=== PATIENT | male | born 1975 | race Two or more races ===

== ENCOUNTER 2018-11-23 09:54 | Emergency (ER) | payer OTHER ==
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
--- NOTE | 2018-11-23 12:26 | PSYCHOLOGICAL NOTE ---
Psych Note - Psych Note Date seen by psych provider: 11/23/18 Psych Note: Presenting Problem: Depression and SI. He denied current SI, said it comes and goes, has not taken action, sleeps all week, has no motivation, no interest in things (fishing, yoga, exercise), unable to focus and doesn't want to see or talk to people. He was tearful. He reported "I want to be happy, I don't want to be like this, just sometimes it pops in my head, I don't know why, no reason, try to do good but can't do anything right, I want to feel okay, I don't want to feel like this." He denied previous MH treatment to include medications and inpatient hospitalization. He denied family history of MH. He mentioned he has felt this way since his triple bypass surgery in 2009. He stated if the medication made him feel better he'd be interested but is scared of medication. He said he was interested in linkage to MH services. Diagnosis: Unspecified Depressive Disorder Medication recommendations made by the psychiatric medical provider, Dr. Louis MD., includes: Add Celexa 20MG daily for depression/ruminating thoughts Impression/Plan: Patient is cleared from acute psychiatric services. He denied current SI/HI, denied previous attempts, admitted to previous thoughts that come and go but never action, and no observed psychosis. He stated he doesn't want to feel this way and want to be happy. Was open to medication and outpatient linkage. Provided medication recommendation. Provided patient with outpatient MH resource sheet which highlighted [facility] for crisis/talk therapy/linkage to other supports/services, as well as [facility] for outpatient follow up. Patient encouraged to call today or first thing in the morning. Consulted with Dr. Batres regarding the management and care of patient. ED Physician in agreement with recommendations.
[2018-11-23 12:59] LABS: ABSOLUTE BASOPHILS # (AUTO) 0.1 10^3/uL (0.0-0.2); ABSOLUTE EOSINOPHILS # (AUTO) 0.1 10^3/uL (0.0-0.6); ABSOLUTE LYMPHOCYTES (AUTO) 2.9 10^3/uL (0.5-4.7); ABSOLUTE MONOCYTES (AUTO) 0.6 10^3/uL (0.1-1.4); ABSOLUTE NEUT (AUTO) 6.2 10^3/uL (1.7-8.2); BASOPHILS % (AUTO) 0.6 % (0-2); EOSINOPHILS % (AUTO) 1.3 % (0-6); HEMATOCRIT 51.1 % (37.9-51.0); HEMOGLOBIN 17.1 g/dL (13.5-17.0); LYMPHOCYTES % (AUTO) 29.2 % (13-45); MEAN CORPUSCULAR HEMOGLOBIN 29.2 pg (27.0-33.4); MEAN CORPUSCULAR HGB CONC 33.4 g/dL (32.0-36.0); MEAN CORPUSCULAR VOLUME 87 fl (80-97); MONOCYTES % (AUTO) 5.7 % (3-13); PLATELET COUNT 282 10^3/uL (150-450); RED BLOOD COUNT 5.84 10^6/uL (4.35-5.55); SEGMENTED NEUTROPHILS % (AUTO) 63.2 % (42-78); TOTAL CELLS COUNTED % (AUTO) 100 %; WHITE BLOOD COUNT 9.8 10^3/uL (4.0-10.5)
[2018-11-23 13:14] LABS: ALANINE AMINOTRANSFERASE 20 U/L (21-72); ALBUMIN 4.7 g/dL (3.5-5.0); ALKALINE PHOSPHATASE 74 U/L (38-126); ANION GAP 11 (5-19); ASPARTATE AMINO TRANSFERASE 31 U/L (17-59); BILIRUBIN,DIRECT 0.3 mg/dL (0.0-0.4); BILIRUBIN,TOTAL 0.5 mg/dL (0.2-1.3); BLOOD UREA NITROGEN 14 mg/dL (7-20); CARBON DIOXIDE 26 mmol/L (22-30); CHLORIDE 103 mmol/L (98-107); GLUCOSE 96 mg/dL (75-110); POTASSIUM 4.4 mmol/L (3.6-5.0); SODIUM 139.5 mmol/L (137-145); TOTAL PROTEIN 7.8 g/dL (6.3-8.2)
[2018-11-23 13:15] LABS: ACETAMINOPHEN < 10 ug/mL (10-30); ALCOHOL < 10 mg/dL (NONE DETECTED); SALICYLATE < 1.0 mg/dL (2.0-20.0)
[2018-11-23 13:29] LABS: APPEARANCE,URINE CLEAR; BILIRUBIN,URINE NEGATIVE (NEGATIVE); COLOR,URINE YELLOW; GLUCOSE, URINE NEGATIVE (NEGATIVE); KETONES,URINE NEGATIVE (NEGATIVE); LEUKOCYTE ESTERASE,URINE NEGATIVE (NEGATIVE); NITRITE,URINE NEGATIVE (NEGATIVE); PROTEIN,URINE NEGATIVE (NEGATIVE); URINE SPECIFIC GRAVITY 1.018; UROBILINOGEN,URINE NEGATIVE mg/dL (<2.0)
[2018-11-23 13:46] LABS: URINE AMPHETAMINES SCREEN NEGATIVE; URINE BARBITURATES SCREEN UNCONFIRMED POSITIVE; URINE BENZODIAZEPINES SCREEN NEGATIVE; URINE COCAINE SCREEN NEGATIVE; URINE MARIJUANA (THC) SCREEN UNCONFIRMED POSITIVE; URINE METHADONE SCREEN NEGATIVE; URINE PHENCYCLIDINE SCREEN NEGATIVE
[2018-11-23] MEDS ORDERED: CITALOPRAM HYDROBROMIDE 20 MG TABLET PO ONE (14:21)
[2018-11-23] MEDS ORDERED: LISINOPRIL 10 MG TABLET PO ONE (14:21)
[2018-11-23 14:41] VITALS: BP 155/113
--- NOTE | 2018-11-23 15:50 | EKG REPORT ---
SEVERITY:- ABNORMAL ECG - SINUS RHYTHM NONSPECIFIC INTRAVENTRICULAR CONDUCTION DELAY PROBABLE LEFT VENTRICULAR HYPERTROPHY INFERIOR INFARCT, OLD : Confirmed by: Jimbo Gupta MD 23-Nov-2018 15:50:04
== END 2018-11-23 14:41 | disposition home or self-care (01) ==
LOC: ER 09:54
DX: F32.9 Major depressive disorder, single episode, unspecified (principal); R45.851 Suicidal ideations; M54.5 Low back pain; M54.2 Cervicalgia; V43.52XA Car driver injured in collision with other type car in traffic accident, initial encounter; I10 Essential (primary) hypertension; I25.10 Atherosclerotic heart disease of native coronary artery without angina pectoris; F17.210 Nicotine dependence, cigarettes, uncomplicated; Z95.1 Presence of aortocoronary bypass graft
CPT/HCPCS: 36415; 80053; 80307; 81001; 85025; 93005; 93010; 99284

== ENCOUNTER 2019-05-08 11:01 | Emergency (ER) | payer OTHER ==
[2019-05-08] MEDS ORDERED: ACETAMINOPHEN 325 MG TABLET PO ONE (11:27)
[2019-05-08] MEDS ORDERED: MECLIZINE HCL 25 MG TABLET PO ONE (11:27)
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
[2019-05-08 12:11] LABS: ABSOLUTE BASOPHILS # (AUTO) 0.1 10^3/uL (0.0-0.2); ABSOLUTE EOSINOPHILS # (AUTO) 0.1 10^3/uL (0.0-0.6); ABSOLUTE LYMPHOCYTES (AUTO) 3.4 10^3/uL (0.5-4.7); ABSOLUTE MONOCYTES (AUTO) 0.5 10^3/uL (0.1-1.4); ABSOLUTE NEUT (AUTO) 7.2 10^3/uL (1.7-8.2); BASOPHILS % (AUTO) 0.5 % (0-2); EOSINOPHILS % (AUTO) 0.8 % (0-6); HEMATOCRIT 48.7 % (37.9-51.0); HEMOGLOBIN 16.3 g/dL (13.5-17.0); LYMPHOCYTES % (AUTO) 30.1 % (13-45); MEAN CORPUSCULAR HEMOGLOBIN 29.5 pg (27.0-33.4); MEAN CORPUSCULAR HGB CONC 33.4 g/dL (32.0-36.0); MEAN CORPUSCULAR VOLUME 89 fl (80-97); MONOCYTES % (AUTO) 4.6 % (3-13); PLATELET COUNT 289 10^3/uL (150-450); RED BLOOD COUNT 5.51 10^6/uL (4.35-5.55); RED CELL DISTRIBUTION WIDTH 13.5 % (11.5-14.0); TOTAL CELLS COUNTED % (AUTO) 100 %; WHITE BLOOD COUNT 11.2 10^3/uL (4.0-10.5)
[2019-05-08 12:37] LABS: ANION GAP 10 (5-19); BLOOD UREA NITROGEN 12 mg/dL (7-20); CALCIUM 9.9 mg/dL (8.4-10.2); CARBON DIOXIDE 26 mmol/L (22-30); CHLORIDE 103 mmol/L (98-107); GLUCOSE 99 mg/dL (75-110); POTASSIUM 4.4 mmol/L (3.6-5.0)
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
[2019-05-08 14:14] VITALS: BP 145/114
--- NOTE | 2019-05-08 23:54 | EKG REPORT ---
SEVERITY:- ABNORMAL ECG - SINUS RHYTHM VENTRICULAR PREMATURE COMPLEX PROBABLE LEFT ATRIAL ABNORMALITY PROBABLE INFERIOR INFARCT, OLD BORDERLINE T WAVE ABNORMALITIES : Confirmed by: Che Denis 08-May-2019 23:53:22
== END 2019-05-08 14:22 | disposition home or self-care (01) ==
LOC: ER 11:01
DX: H72.93 Unspecified perforation of tympanic membrane, bilateral (principal); I10 Essential (primary) hypertension; R42 Dizziness and giddiness; M54.2 Cervicalgia; M54.5 Low back pain; M79.606 Pain in leg, unspecified; F17.200 Nicotine dependence, unspecified, uncomplicated; I25.10 Atherosclerotic heart disease of native coronary artery without angina pectoris; Z95.1 Presence of aortocoronary bypass graft; R53.1 Weakness; Z85.9 Personal history of malignant neoplasm, unspecified; R53.81 Other malaise
CPT/HCPCS: 36415; 70450; 72110; 72125; 80048; 85025; 93005; 93010; 99284

== ENCOUNTER 2019-05-23 15:28 | Emergency (ER) | payer OTHER ==
[2019-05-23 16:04] VITALS: BP 136/92
[2019-05-23] MEDS ORDERED: ASPIRIN 81 MG TABLET, CHEWABLE PO ONE (16:20)
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
== END 2019-05-23 16:00 | disposition left against medical advice (07) ==
LOC: ER 15:28
DX: R07.9 Chest pain, unspecified (principal); M54.9 Dorsalgia, unspecified; M54.2 Cervicalgia; M54.5 Low back pain; R20.0 Anesthesia of skin; V87.7XXA Person injured in collision between other specified motor vehicles (traffic), initial encounter; Z79.899 Other long term (current) drug therapy; I25.10 Atherosclerotic heart disease of native coronary artery without angina pectoris; I10 Essential (primary) hypertension
CPT/HCPCS: 99284